=== PATIENT | female | born 1960 ===

== ENCOUNTER 2020-08-27 16:19 | Outpatient (REF) | payer OTHER, SELFPAY ==
--- NOTE | ~2020-08-27 | MM_ITS ---
EXAMINATION: MM SCREENING DIGITAL BREAST TOMOSYNTHESIS, BILATERAL CLINICAL INFORMATION: Screening. Asymptomatic. The lifetime risk of breast cancer based on the Tyrer-Cuzick Model is 17.2%. COMPARISON: Mammography: September 06, 2018 and studies dating back to January 05, 2011 TECHNIQUE: Digital breast tomosynthesis is performed in both the craniocaudal and mediolateral oblique views along with computer-aided detection (CAD). Synthesized 2D images are generated from the tomosynthesis. FINDINGS: The breasts are almost entirely fatty (ACR BI-RADS breast composition Category a). There are no significant masses, abnormal calcifications, or other abnormalities. MM/MM tomosynthesis screening BI IMPRESSION: There are no significant changes from prior study. ASSESSMENT: BI-RADS 1: Negative RECOMMENDATION: Routine annual mammography screening. This patient's information was entered into a reminder system with a target due date for their next mammogram.
== END 2020-08-27 16:20 | disposition home or self-care (01) ==
LOC: HO.MAMMO 16:19
PROVIDERS: Visit Provider Family Medicine
DX: Z12.31 Encounter for screening mammogram for malignant neoplasm of breast (principal)
CPT/HCPCS: 77063; 77067

== ENCOUNTER 2021-12-07 14:00 | Outpatient (REF) | payer OTHER, SELFPAY ==
--- NOTE | ~2021-12-07 | XR_ITS ---
EXAMINATION: XR HAND, RIGHT CLINICAL INFORMATION: Pain COMPARISON: None TECHNIQUE: PA, lateral, and oblique views of the right hand. FINDINGS: The bones and soft tissues are normal. No fracture. Alignment is anatomic. Joint spaces are maintained. No erosions or soft tissue calcifications. XR/XR hand RT min 3V IMPRESSION: Normal right hand.
== END 2021-12-07 14:01 | disposition home or self-care (01) ==
LOC: HO.XRAY 14:00
PROVIDERS: PCP Family Medicine; Visit Provider Nurse Practitioner Primary Care
DX: M79.644 Pain in right finger(s) (principal)
CPT/HCPCS: 73130

== ENCOUNTER 2023-05-19 11:09 | Outpatient (REF) | payer MEDICAID, SELFPAY ==
[2023-05-22 10:48] LABS: TS Negative Control Passed; TS Panel A 1; TS Panel B 0; TS Positive Control Passed; TSpotTB Negative (Negative)
== END 2023-05-19 11:10 | disposition home or self-care (01) ==
LOC: HO.HHCL 11:09
PROVIDERS: Visit Provider Family Medicine
DX: Z11.1 Encounter for screening for respiratory tuberculosis (principal)
CPT/HCPCS: 36415; 86481

== ENCOUNTER 2023-07-05 10:26 | Outpatient (REF) | payer OTHER, SELFPAY ==
[2023-07-05 12:01] LABS: Estimated Average Glucose 128 mg/dL; Hemoglobin A1c % 6.1 % (<6.0)
[2023-07-05 12:30] LABS: Alanine Aminotransferase 13 U/L (0-31); Albumin Level 3.9 g/dL (3.5-5.0); Alkaline Phosphatase 68 U/L (39-117); Anion Gap 10 (12-20); Aspartate Amino Transferase 17 U/L (5-31); Bilirubin Total 0.4 mg/dL (0.0-1.0); Blood Urea Nitrogen 13 mg/dL (9-16); Calcium 9.4 mg/dL (8.4-10.2); Carbon Dioxide 29 mmol/L (22-29); Chloride 105 mmol/L (96-108); Cholesterol 268 mg/dL (<200); Estimated Glomerular Filt Rate > 60; Glucose Random 108 mg/dL (60-115); HDL Cholesterol 50 mg/dL (>40); LDL Cholesterol Calculated 171 mg/dL (<100); Potassium 4.5 mmol/L (3.3-5.1); Sodium 139 mmol/L (135-145); Total Protein 7.9 g/dL (6.5-8.0); Triglycerides 235 mg/dL (<150)
[2023-07-05 12:49] LABS: Reflex LDLD? No
== END 2023-07-05 10:27 | disposition home or self-care (01) ==
LOC: HO.HHCL 10:26
PROVIDERS: Visit Provider Family Medicine
DX: E78.5 Hyperlipidemia, unspecified (principal); R73.02 Impaired glucose tolerance (oral)
CPT/HCPCS: 36415; 80053; 80061; 83036

== ENCOUNTER 2023-07-27 10:07 | Outpatient (REF) | payer MEDICAID, SELFPAY | END 2023-07-27 10:08 | disposition home or self-care (01) | LOC: HO.MAMMO 10:07 | PROVIDERS: PCP Family Medicine; Visit Provider Family Medicine | DX: Z12.31 Encounter for screening mammogram for malignant neoplasm of breast (principal) | CPT/HCPCS: 77063; 77067 ==

== ENCOUNTER → 2023-07-27 10:15 | Outpatient (BNV) | payer MEDICAID, SELFPAY | PROVIDERS: PCP Family Medicine; Visit Provider Radiology Diagnostic Radiology | DX: Z12.31 Encounter for screening mammogram for malignant neoplasm of breast (principal) | CPT/HCPCS: 77063; 77067 ==

== ENCOUNTER 2023-08-21 09:08 | Outpatient (AMB) | payer MEDICAID, SELFPAY ==
--- NOTE | 2023-08-21 09:10 | A.OFFVIS_ITS ---
Vital Signs 08/21/23 09:12 Height 5 ft 3 in Weight 172 lb 6.424 oz BMI 30.5 BP 120/66 Blood Pressure Location Lt brachial Position Sitting Pulse 60 Pulse Source Pulse Oximeter Pulse Oximetry (%) 98 Oxygen Delivery Method Room Air Intake Visit Reasons: Colonoscopy screening Intake Note: Graciela presents today for a colo scr, new pt appt. CC; Pt reports that they are very excited for this appt; pt reports that they are experiencing intermittent constipation and loose stools. Pt also reports that they have no previous hx of colo. Allergies Penicillins [PENICILLINS] Allergy (Intermediate, Verified 08/21/23 09:18) RASH penicillin V Allergy (Unknown, Verified 08/21/23 09:18) Rash HPI HPI Colonoscopy screening: Details: 63 year old? female is here today for pre colonoscopy screening.? Patient was sent to us by her PCP.? This is her first colonoscopy screening.? Patient denies any gastrointestinal symptoms in the past or at present, however patient does admit to occasional constipation and occasional loose stools depending on what she eats..? Denies any personal or family history of gastrointestinal disease, colon polyps, or CRC.? Patient never had anesthesia in the past.? Negative for history of sleep apnea.? Denies any history of cardiac, renal, pulmonary, or hepatic disease.?? No history of infectious? diseases like hepatitis A, B, C, HIV or tuberculosis.? Patient is not on any anticoagulation [facility] Medical History delivery delivered Family History Sister Breast cancer Social History (Updated 08/21/23 @ 09:17 by Yohannes Melgar CMA) Alcohol intake: never Patient Tobacco Use Status: Never used Tobacco Use of substances other than those prescribed or required for medical reasons: No Review of Systems Const Denies weight gain and Denies weight loss ENT Reports no additional complaints, Denies dysphagia and Denies odynophagia Card Reports no additional complaints Resp Reports no additional complaints GI Denies abdominal pain, Denies belching, Denies melena, Denies bloating, Reports constipation, Denies dysphagia, Denies excessive flatus, Denies dyspepsia, Carlos es heartburn, Denies diarrhea, Reports loose stools, Denies nausea, Denies odynophagia and Denies vomiting Reports no additional complaints Musc Reports no additional complaints Neuro Reports no additional complaints Psych Reports no additional complaints Endo Reports no additional complaints Physical Exam Vital Signs: Last Vital Signs Pulse 60 08/21/23 09:12 BP 120/66 08/21/23 09:12 Pulse Ox 98 08/21/23 09:12 Oxygen Delivery Method Room Air 08/21/23 09:12 BMI result Body Mass Index 30.5 Const General: healthy appearing and no acute distress Nutritional Appearance: obese Orientation/consciousness: patient oriented x3 Resp Effort & Inspection: normal respiratory effort, able to speak in complete sentences, no tracheal deviation and symmetric chest movement Auscultation: clear to auscultation bilaterally Cardio Rate: regular rate GI Inspection: Yes normal to inspection, No distended and Yes obesity Palpation (GI): Soft to palpation, not firm, nontender and No hepatosplenomegaly present Auscultation: normal bowel sounds General: Yes no CVA tenderness Back/Spine/Pelvis Back: no CVA tenderness Skin General skin exam: elasticity normal, turgor normal and dry skin Neuro General: patient oriented x3 Psych Appearance: grossly normal Mental Status: mental status grossly normal Assessment & Plan Assessment & Plan (1) Positive colorectal cancer screening using Cologuard test: Code(s): R19.5 - Other fecal abnormalities Plan Patient denies any GI, cardiac or respiratory symptoms.? However patient does admit to have occasional constipation or diarrhea depending on what she eats. Patient never had anesthesia in the past.? Denies any history of sleep apnea.? No history infectious diseases in the past or present.? Not on any anticoagulation therapy.? No family or personal history of colon cancer or polyps.? Patient denies melena, hematochezia, unintentional weight loss or ribbon like stools.? Discussed at length the pre-procedure,? prep, diet & medications as well as what to expect prior, during and after the procedure.?? Stressed the importance of good bowel prep.? Recommended the use of Vaseline or Calmoseptine OTC & baby wipes with bowel movements to promote comfort.? ?Patient verbalizes understanding and agrees to plan of care.? She was given the opportunity to ask questions and all questions answered.? We will see her after the procedure.? Medications: New bisacodyl (Dulcolax (bisacodyl)) take 4 tabs at noon the day before your colonoscopy 20 mg (4 x 5 mg) PO ONCE 4 tabs 0RF 1 day Z12.11 - Encounter for screening for malignant neoplasm of colon polyethylene glycol 3350 (Miralax) As directed by gastroenterology department at [facility] 238 grams PO ONCE 238 grams 0RF Z12.11 - Encounter for screening for malignant neoplasm of colon Coding Level of Care Code New Pt Level 3 (18017) Diagnoses Positive colorectal cancer screening using Cologuard test R19.5 Time Spent (min) 40 Comment 30 minutes spent with patient and additional 10 minutes spent reviewing her records
[2023-08-21 09:12] VITALS: BP 120/66; PULSE 60; O2SAT 98; BMI 30.5
== END 2023-08-21 10:07 | disposition home or self-care (01) ==
PROVIDERS: PCP Family Medicine; Visit Provider Nurse Practitioner Family
DX: R19.5 Other fecal abnormalities (principal)
CPT/HCPCS: 99203

== ENCOUNTER → 2023-08-21 09:08 | Outpatient (BNVA) | payer MEDICAID, SELFPAY | PROVIDERS: PCP Family Medicine; Visit Provider Nurse Practitioner Family | DX: R19.5 Other fecal abnormalities (principal) | CPT/HCPCS: 99212 ==

== ENCOUNTER 2023-10-04 13:46 | Outpatient (AMB) | payer MEDICAID, SELFPAY ==
--- NOTE | 2023-10-04 13:51 | A.OFFVIS_ITS ---
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 She does not have any history of coronary artery disease or myocardial infarction or cardiomyopathy or in fact any other cardiac issues. She states she gets chest pain on both sides of her sternum off and on. No clear exertional patterns and can essentially happen any time. No other complaints like shortness of breath or palpitations or anything else of cardiac nature. She seems to have a normal blood pressure. She does have high lipids but does not seem to be on any statins. [facility] Medical History (Updated 10/04/23 @ 14:19 by Colton Parada MD) Mixed hyperlipidemia delivery delivered Family History Sister Breast cancer Social History Alcohol intake: never Patient Tobacco Use Status: Never used Tobacco Review of Systems Const Denies chills, Denies daytime sleepiness, Denies fatigue, Denies fever(s), Denies poor appetite, Denies snoring, Denies stops breathing during sleep, Denies weakness, Denies weight gain and Denies weight loss Eyes Denies loss of vision ENT Denies dizziness and Reports hearing loss Card Denies chest pain, Denies irregular heart rhythm, Denies claudication, Denies leg edema, Denies lightheadedness, Denies palpitations, Denies dyspnea on exertion and Denies orthopnea Resp Denies cough, Denies excessive phlegm production, Denies dyspnea on exertion, Denies snoring and Denies wheezing GI Denies abdominal pain, Denies hematochezia, Denies change in bowel habits, Denies nausea and Denies vomiting Denies urinary frequency and Denies dysuria Musc Denies arthralgias, Denies muscle weakness, Denies numbness and Denies other Skin/Breast Denies nail changes and Denies rash Neuro Denies Abnormal speech present, Denies dizziness, Denies loss of vision, Denies memory loss, Denies numbness and Denies weakness Psych Denies depression and Denies memory loss Endo Denies fatigue and Denies palpitations Baldomero/Lymph Denies easy bruising Aller/Immun Denies wheezing Physical Exam Vital Signs: Last Vital Signs Pulse 60 10/04/23 13:52 BP 112/66 10/04/23 13:52 BMI result Body Mass Index 30.6 Const General: comfortable and no acute distress Orientation/consciousness: patient oriented x3 HEENT Other: Unremarkable Head: Yes normal to inspection Neck Neck: Yes normal visual inspection Chest Chest palpation & inspection: normal inspection of the chest Resp Auscultation: clear to auscultation bilaterally Cardio Palpation: normal PMI Heart sounds: S1 normal heart sound present, S2 normal heart sound present, no gallops, no murmurs and no rubs GI Palpation (GI): Soft to palpation Back/Spine/Pelvis Other: unremarkable Skin General skin exam: no rashes or lesions noted Neuro General: patient oriented x3 Speech: No Abnormal speech present Extrem General: Yes normal to inspection Psych Mental Status: mental status grossly normal Office Procedures EKG Details: EKG with sinus rhythm at 60/Min; nonspecific ST-T changes; [place]. [address]-[id number], Complete Assessment & Plan Assessment & Plan (1) Precordial chest pain: Code(s): R07.2 - Precordial pain Category: Medical (2) Mixed hyperlipidemia: Code(s): E78.2 - Mixed hyperlipidemia Category: Medical Plan Atypical chest pain, untreated hyperlipidemia, nonspecific changes in the EKG. Plan for an echocardiogram and exercise stress test. Follow-up after the above. Orders: Orders CA echo transthoracic complete Today R07.2 - Precordial pain CA echo stress exercise Today R07.2 - Precordial pain Coding Level of Care Code New Pt Level 3 (11290) Diagnoses Precordial chest pain R07.2 Mixed hyperlipidemia E78.2 CPT Codes EKG - CPT: 44490-[id number], Complete ([id number])
[2023-10-04 13:52] VITALS: BP 112/66; PULSE 60; BMI 30.6
== END 2023-10-04 14:19 | disposition home or self-care (01) ==
PROVIDERS: PCP Family Medicine; Visit Provider Internal Medicine
DX: R07.2 Precordial pain (principal); E78.2 Mixed hyperlipidemia
CPT/HCPCS: 93010; 99203

== ENCOUNTER → 2023-10-04 13:46 | Outpatient (BNVA) | payer MEDICAID, SELFPAY | PROVIDERS: PCP Family Medicine; Visit Provider Internal Medicine | DX: R07.2 Precordial pain (principal); E78.2 Mixed hyperlipidemia | CPT/HCPCS: 93005; 99202 ==

== ENCOUNTER → 2023-10-19 13:06 | Outpatient (REF) | payer MEDICAID, SELFPAY ==
--- NOTE | 2023-10-19 13:09 | CA_ITS ---
Transthoracic Echocardiogram Patient (Last, First, Middle): Graciela Sheldon, Gender: Female Date of : 1960 Age: 63 Procedure Date: 10/19/2023 Procedure Type: Transthoracic Echocardiogram Location: OP Height: 160.02 cm Weight: 78.93 kg BSA: 1.82 m2 Heart Rate: bpm BP: 112 / 66 mmHg Apartment Maintenance Manager: MCKENNA Referring MD: Colton Parada MD Burr Machine Operator: Ramu Darling MD Symptoms: R07.2 - Precordial pain Study Quality: Adequate ECG Rhythm: Sinus Conclusions: - Normal study Findings Left Ventricle Normal left ventricular size, thickness, and systolic function. The visually estimated ejection fraction is between 65-70%. Spectral Doppler is indicative of a normal filling pattern. Peak GLS is -23.7%, within normal limits. Right Ventricle Normal right ventricular cavity size and systolic function. Atria Both atria are normal in size. There is no evidence of interatrial shunt. Aortic Valve Normal aortic valve structure and function. There is no aortic valve stenosis. There is no aortic valve regurgitation. Mitral Valve Normal mitral valve structure and function. There is trace mitral valve regurgitation. There is no mitral valve stenosis. Pulmonic Valve The pulmonic valve is likely normal. Tricuspid Valve Normal tricuspid valve structure. There is trace tricuspid valve regurgitation. The right ventricular systolic pressure is normal. The right ventricular systolic pressure is 26 mmHg. Normal right atrial pressure. There is no evidence of pulmonary hypertension. Great Vessels All visible segments of the aorta are normal in size. The pulmonary artery was not well visualized. Venous The inferior vena cava is normal in size and collapses greater than 50% with inspiration. Pericardium/Pleural There is no evidence of pericardial effusion. Prior Study Comparison No prior study available for comparison. Measurements 2D Linear Measurements IVSd: 0.91 0.6-0.9/0.6-1.0 cm LVIDd: 4.25 3.9-5.3/4.2-5.9 cm LVIDd Index: 2.34 2.4-3.2/2.2-3.1 cm/m2 LVIDs: 2.05 2.0-3.6 cm LVPWd: 0.78 0.7-1.1 cm LA Diam: 3.50 2.7-3.8/3.0-4.0 cm LAIDs Index: 1.92 1.5-2.3 cm/m2 LV Mass: 137.80 67-162/88-224 g LV Mass Index: 75.72 43-95/49-115 g/m2 LVOT Diam: 1.90 3.0+(-)1.3 cm 2D Systolic Function EF 4C: 71.60 >55% EF 2C: 67.40 >55% EF BiP: 68.90 >55% Mitral Valve MV Pk E: 0.69 MV PK A: 0.74 MV Decel Time: 292.00 E/A: 0.90 E'Lateral: 10.70 E'Medial: 6.64 E/E' Med: 10.50 E/E' Lat: 6.50 PHT: 86.00 MVA PHT: 2.56 Decel [place]: 2.38 Aortic Valve AoV Pk Chandu: 1.79 AoV Mn Chandu: 1.18 AoV VTI: 0.39 AoV Pk Grad: 13.00 Aov Mn Grad: 6.00 LIO Cont.VTI: 1.94 LVOT LVOT Pk Chandu: 1.17 LVOT Mn Chandu: 0.73 LVOT VTI: 0.27 LVOT Pk Grad: 5.00 LVOT Mn Grad: 3.00 LVOT Diam: 1.90 LVOT Area: 2.84 Diastolic Function MV Pk E: 0.69 MV Pk A: 0.74 E/A: 0.90 E'Medial: 6.64 E/E' Med: 10.50 E' Laterial: 10.70 E/E' Lat: 6.50 Right Ventricle TAPSE (mm): 21.10 TVS' Chandu: 10.90 Tricuspid Valve TR Pk Chandu: 2.39 TR Pk Grad: 23.00 RA Press: 3.00 RVSP: 26.00 Great Vessels Aorta Sinus of Valsalva: 2.52 2.0-3.[address] [place]: 1.54 1.7-3.4 cm Ao Asc: 2.70 2.1-3.4 cm Updated in Other Vendor System with Status of Final Ramu Darling MD electronically signed on 10/19/2023 3:45:26 PM with status of Final
== END ==
LOC: HO.CARD 13:06
PROVIDERS: PCP Family Medicine; Visit Provider Internal Medicine
DX: R07.2 Precordial pain (principal)
CPT/HCPCS: 93306; 93356

== ENCOUNTER → 2023-10-19 13:09 | Outpatient (BNV) | payer MEDICAID, SELFPAY | PROVIDERS: PCP Family Medicine; Visit Provider Internal Medicine Cardiovascular Disease | DX: R07.2 Precordial pain (principal) | CPT/HCPCS: 93306; 93356 ==

== ENCOUNTER → 2023-11-16 10:53 | Outpatient (REF) | payer MEDICAID, SELFPAY ==
--- NOTE | 2023-11-16 10:56 | CA_ITS ---
Acquisition Time: 2023-11-16 11:03:28 Total Exercise Time: 00:10:13 Test Indications: HYPERLIPIDEMIA, CP Medications: SEE H Protocol: ADENIKE Max HR: 148 BPM 93% of Pred: 159 BPM Max BP: 156/084 mmHG Max Work Load: 11.4 METS Exercise stress test with exercise 10 min 13 sec of Adenike protocol, achieving 93% MPHR, without anginal symptoms, with isolated PACs, with normotensive response to exercise, without EKG changes meeting criteria for ischemia. EKG lead became disconnected in patient transfer from treadmill to stretcher causing a delay in post exercise images by 30 seconds. Echo images obtained by tech at rest and post exercise. Definity contrast used. Test reviewed with Dr Darling. Referred By: Colton Parada Overread By: DIANNE CHACON
== END ==
LOC: HO.CARD 10:53
PROVIDERS: PCP Family Medicine; Visit Provider Internal Medicine
DX: R07.2 Precordial pain (principal)
CPT/HCPCS: 93350; Q9957

== ENCOUNTER → 2023-11-16 10:56 | Outpatient (BNV) | payer MEDICAID, SELFPAY | PROVIDERS: PCP Family Medicine; Visit Provider Nurse Practitioner Family | DX: R07.9 Chest pain, unspecified (principal); I49.3 Ventricular premature depolarization | CPT/HCPCS: 93016; 93018; 93350; 93352 ==

== ENCOUNTER 2024-08-01 10:23 | Outpatient (REF) | payer MEDICAID, SELFPAY ==
--- OUTSIDE RECORDS SUMMARY | 2024-08-01 11:29 | XMS_ITS | Clinical Summary ---
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 - Continue working on lifestyle modification Assessment & Plan (07/06/2023 8:44 AM EDT): - EKG: heart rate 55 bradycardia, LAD - will refer to professional athletes coach for stress test Carpal tunnel syndrome 11/17/2016 Assessment & Plan (07/06/2023 8:42 AM EDT): - continue conservative management Dyslipidemia 03/08/2016 Assessment & Plan (10/04/2023 10:40 AM EDT): - Last lipid profile on 07/05/2023 TC 268; TG 235; HDL 50; LDL 171 - continue working on lifestyle modifications Assessment & Plan (07/06/2023 8:44 AM EDT): - continue working on lifestyle modifications - will check lab Obesity 01/05/2016 Pre-diabetes 12/19/2011 Assessment & Plan (10/04/2023 3:54 PM EDT): >>ASSESSMENT AND PLAN FOR IMPAIRED GLUCOSE TOLERANCE WRITTEN ON 07/06/2023 8:43 AM BY AMAURY LUX MD - will check lab - continue working on lifestyle modifications Assessment & Plan (10/04/2023 3:55 PM EDT): - A1c 6.3 % on 10/04/2023 - continue working on lifestyle modifications Encounters Date Type Department Care Team Description 05/31/2024 Population Health Risk Score Community [facility] ([facility]) Department [address] [place] [address] [phone] Provider, Population Health Generic from Last 3 Months Immunizations Immunization Administration Dates Next Due Influenza injectable quadriv alent IIV4 with preservative 01/23/2018,04/25/2017,01/05/2016 Influenza, IIV3, injectable 01/09/2014 MMR 10/14/2020,09/16/2020 Tdap 06/08/2021,11/03/2010 Zoster, Recombinant 11/18/2020,09/17/2020 Social History Tobacco Use Types Packs/Day Years Used Date Smoking Tobacco: Never Smokeless Tobacco: Never Tobacco Cessation:Counseling Given: Not Answered Depression Answer Date Recorded Patient Health Questionnaire-9 Score 0 07/05/2023 Patient Health Questionnaire-9 Score 0 07/05/2023 Last PHQ-9: Questionnaire Data Not on file 0 07/05/2023 Housing Stability Answer Date Recorded What is your housing situation today? I have tabitha zapien 06/23/[address] you li ve. Do you have problems with any of the following? None of the above 06/23/2023 Food Insecurity Answer Date Recorded Within the past 12 months, y ou worried that your food would run out before you got money to buy more: Never True 06/23/2023 Within the past 12 months,th e food you bought just didn't last and you didn't have enough money to get more: Never True 07/2023 Transportation Answer Date Recorded In the past 12 months, has l ack of transportation kept you from medical appts, meetings, work or from getting things needed for daily living? No 06/23/2023 Utilities Answer Date Recorded In the past 12 months, has t he electric, gas, oil or water company threatened to shut off services in your home? No 06/23/2023 Depression Answer Date Recorded Patient Health Questionnaire-2 Score 0 07/05/2023 Comments Unknown Sex and Gender Information Value Date Recorded Sex Assigned at Female 01/17/2022 10:21 AM EDT Legal Sex Female 10:21 AM EDT Gender Identity Female 01/17/2022 10:21 AM EDT Sexual Orientation Choose not to disclose 2021 10:21 AM EDT Last Filed Vital Signs Vital Sign Reading Time Taken Comments Blood Pressure 110/68 10/04/2023 10:11 AM EDT Pulse 66 10/04/2023 10:11 AM EDT Temperature 35.8 ??C (96.5 ??F) 10/04/2023 1 0:11 AM EDT Respiratory Rate 18 10/04/2023 10:1 1 AM EDT Oxygen Saturation 98% 10/04/2023 10: 11 AM EDT Inhaled Oxygen Concentration - - Weight 78.4 kg (172 lb 12.8 oz) 024 10:11 AM EDT Height 159.9 cm (5' 2.95 ) 07/05/2023 9:32 AM ED T Body Mass Index 30.66 07/05/2023 9:32 AM EDT Plan of Treatment Upcoming Encounters Date Type Department Care Team (Late st Contact Info) Description 08/08/2024 2:30 PM EDT Office Visit [facility] [address] [place] [address] Ernie, Shreya, OD [address] [place], [place] [phone] Health Maintenance Due Date Last Done Comments CT Colonography 1962 Colonoscopy 1960 Colorectal Cancer Screening 1960 FIT DNA/Cologuard 1962 FIT 1962 FOBT 1960 Sigmoidoscopy 1962 Alcohol/Substance Use Screening 1974 Pneumococcal Vaccine: 50+ Years (1 of 1 - PCV) 2012 Pap Smear 09/30/2023 09/29/2020 COVID-19 Vaccine ( - 2023- season) 2023 09/29/2020, 09/01/2020 Influenza Vaccine (#1) 2023 8, 04/25/2017, 01/05/2016, Additional history exists Dental Oral Exam 01/28/2024 07/27/2023 Dental Prophylaxis 01/29/2024 07/28/2023 SDOH Screening 06/22/2024 06/23/2023 Depression Screening 07/04/2024 07/05/2023, 07/05/19 24 Dental X-Ray: Bitewings 07/27/2024 07/27/2023 Diabetes: Hemoglobin A1C 10/03/2024 024, 07/05/2023, 06/08/2021, Additional history exists Tobacco Screening 10/03/2024 10/04/2023 Mammogram 07/26/2025 07/27/2023, 08/18, 09/07/2018, Additional history exists Cervical Cancer Screening 09/29/2025 HPV/Cotest 09/29/2025 09/29/2020 Dental X-Ray: Full Mouth 07/27/2026 07/27/2023 Lipid Panel 07/04/2028 07/05/2023, 05/19, 08/20/2020 DTaP/Tdap/Td Vaccines (3 - Td or Tdap) 06/09/2031 06/08/2021, 11/03/2010 RSV Patients and Patients Aged 60 years or older (1 - 1-dose 75+ series) 2037 Zoster Vaccines Completed 11/18/2020, 09/17/2020 HIB Vaccines Aged Out No longer eligi ble based on patient's age to complete this topic HIV Screening Discontinued HPV Vaccines Aged Out No longer eligi ble based on patient's age to complete this topic Hepatitis A Vaccines Aged Out No long er eligible based on patient's age to complete this topic Hepatitis B Vaccines Aged Out No long er eligible based on patient's age to complete this topic Hepatitis C Screening Discontinued IPV Vaccines Aged Out No longer eligi ble based on patient's age to complete this topic Meningococcal B Vaccine Aged Out No l onger eligible based on patient's age to complete this topic Meningococcal Vaccine Aged Out No alycia haven eligible based on patient's age to complete this topic RSV under 20 months Aged Out No longe r eligible based on patient's age to complete this topic Rotavirus Vaccines Aged Out No longer eligible based on patient's age to complete this topic Procedures Procedure Name Priority Date/Time Associated Diagnosis Comments POCT GLYCOSYLATED HEMOGLOBIN (HGB A1C) Routine 10/04/2023 10:48 AM EDT Pre-diabetes PROPHYLAXIS - ADULT Routine 07/28/2023 2 :00 PM EDT Periodontal disease Dental calculus INTRAORAL - COMPLETE SERIES OF RADIOGRAPHIC IMAGES Routine 07/27/2023 1:30 PM EDT Encounter for dental examination Dental caries Periodontal disease Dental calculus Dental abscess COMPREHENSIVE ORAL EVALUATION - NEW OR ESTABLISHED PATIENT Routine 07/27/2023 1:30 PM EDT Encounter for dental examination Dental caries Periodontal disease Dental calculus Dental abscess BI MAMMOGRAM SCREENING TOMOSYNTHESIS BILATERAL Routine 07/27/2023 10:38 AM EDT Breast cancer screening by mammogram LIPID PANEL WITH REFLEX TO DIRECT LDL Routine 07/05/2023 10:27 AM EDT Dyslipidemia HPV MRNA E6/E7 Routine 09/29/2020 12:00 AM EDT THINPREP PAP Routine 09/29/2020 12:00 AM EDT from Last 3 Months or Most Recently Relevant to Health Maintenance Results * (ABNORMAL) POCT glycosylated hemoglobin (Hgb A1c) (10/04/2023 10:48 AM EDT) Hemoglobin A1C 6.3(A) 4.0 - 6.0 % QC Media Lot # [id number] Lot# Expiration Date [id number] Blood Capillary blood specimen / Unknown 10/04/2023 10:48 AM EDT Amaury Lux MD POINT OF CARE TEST ENTER/EDIT OR DERABLES Final Result * BI Mammogram Screening Tomosynthesis Bilateral (07/27/2023 10:38 AM EDT) Anatomical Region Laterality Modality Breast Bilateral Mammography 07/27/2023 10:3 8 AM EDT Narrative 08/25/2023 8:37 AM EDT ? [facility] [place] ? [address] ?[place] [address] ? Mammography Report ? Signed ? Patient: Graciela Sheldon ? MR#: [id number] ? : 1960 ?Acct:[id number] ? Age/Sex: 63 / F ?ADM Date: 07/27/23 ? Loc: HO.MAMMO ? Attending Dr: Amaury Lux MD ? Ordering Physician: Amaury Lux MD ?Results: 1Negative ? Date of Service: 07/27/23 ?Follow Up: 1 Year From Orig ?? inal Mammogram ? Procedure(s): MM tomosynthesis screening BI ?? Accession Number(s): [id number] ? cc: Amaury Lux MD ? EXAMINATION: ?? MM SCREENING DIGITAL BREAST TOMOSYNTHESIS, BILATERAL ? CLINICAL INFORMATION: ? Screening. Asymptomatic. ? COMPARISON: ?? Mammography: This study is compared with prior exams dating back to ?? 2017. ? TECHNIQUE: ?? Digital breast tomosynthesis is performed in both the craniocaudal and ?? mediolateral oblique views along with computer-aided detection (CAD). ?? Synthesized 2D images are generated from the tomosynthesis. ? FINDINGS: ?? There are scattered areas of fibroglandular density (ACR BI-RADS breast ?? composition Category b). ? There are no significant masses, abnormal calcifications, or other ?? abnormalities. ? MM/MM tomosynthesis screening BI ?? IMPRESSION: ?? No mammographic evidence of malignancy. ? ASSESSMENT: ? BI-RADS BI-RADS 1 - Negative ? RECOMMENDATION: ?? Routine annual mammography screening. ? 1 year F/U ? This examination should not preclude the clinical evaluation of a ?? suspicious palpable abnormality. ? This patient's information was entered into a reminder system with a ?? target due date for their next mammogram. ? Dictated By: ?Alis Lockhart MD ? Signed By: ?<Electronically signed by Alis Lockhart MD in OV> ? 08/25/23 0833 ? DD/ 1038 ? TD/TT: ? [employer] Driver: ? Procedure Note Crescencio Fitch - 08/25/2023 [facility] [address] [place] [address] Dr. Echols, REBECCA [address] Mammography Report Signed Patient: Graciela Sheldon MR#: [id number] : 1960Acct:[id number] Age/Sex: 63 / FADM Date: 07/27/23 Loc: [facility] Attending Dr: Amaury Lux MD Ordering Physician: Amaury Luxesults: 1Negative Date of Service: 07/27/23Follow Up: 1 Year From Orig inal Mammogram Procedure(s): MM tomosynthesis screening BI Accession Number(s): [id number] cc: Amaury Lux MD EXAMINATION: MM SCREENING DIGITAL BREAST TOMOSYNTHESIS, BILATERAL CLINICAL INFORMATION: Screening. Asymptomatic. COMPARISON: Mammography: This study is compared with prior exams dating back to 2018. TECHNIQUE: Digital breast tomosynthesis is performed in both the craniocaudal and mediolateral oblique views along with computer-aided detection (CAD). Synthesized 2D images are generated from the tomosynthesis. FINDINGS: There are scattered areas of fibroglandular density (ACR BI-RADS breast composition Category b). There are no significant masses, abnormal calcifications, or other abnormalities. MM/MM tomosynthesis screening BI IMPRESSION: No mammographic evidence of malignancy. ASSESSMENT: BI-RADS BI-RADS 1 - Negative RECOMMENDATION: Routine annual mammography screening. 1 year F/U This examination should not preclude the clinical evaluation of a suspicious palpable abnormality. This patient's information was entered into a reminder system with a target due date for their next mammogram. Dictated By: Alis Lockhart MD Signed By: <Electronically signed by Alis Lockhart MD in OV> 08/25/23 0833 DD/ 1038 TD/TT: [employer] Driver: Amaury Lux MD IM BI PROCEDURES Edited Result - Final * (ABNORMAL) Lipid Panel with Reflex to Direct LDL (07/05/2023 10:27 AM EDT) Triglycerides 235(H) <150 mg/dL [facility] Comment:Desirable Triglyceri de: less than 150 mg/dLBorderline High Triglyceride 150-199 mg/dLHigh Triglyceride: 200-499 mg/dLVery High Triglyceride: greater than or equal to 5OO mg/dL Cholesterol 268(H) <200 mg/dL [facility] Comment:Desirable Cholestero l: less than 200 mg/dLBorderline High Cholesterol: 200-239 mg/dLHigh Cholesterol: greater than 239 mg/dL LDL Cholesterol Calculated 171(H) <100 mg/dL [facility] Comment:Desirable LDL: less than 100 mg/dLNear Optimal/Above Optimal LDL: 110- 129 mg/dLBorderline High LDL: 130-159 mg/dLHigh LDL: 160-189 mg/dLVery High LDL: greater than or equal to 190 mg/dL HDL Cholesterol 50 >40 mg/dL [facility] Comment:Desirable HDL: great er than 40 mg/dL Note: This HDL assay may give artificially low results in patients with liver disease. Blood 07/05/2023 10:2 7 AM EDT 07/05/2023 11:20 AM EDT us Amaury Lux MD LAB BLOOD ORDERABLES Final Resul t Performing Organization Address [facility]/ZIP Co de Phone Number [facility] [address] [place] [phone] * THINPREP PAP (09/29/2020 12:00 AM EDT) Clinical Information: None given [facility] COMMENT SEE COMMENT [facility] Comment: EXPLANATORY NOTE: ? The Pap is a screening test for cervical cancer. It is ?? not a diagnostic test and is subject to false negative ?? and false positive results. It is most reliable when a ?? satisfactory sample, regularly obtained, is submitted ?? with relevant clinical findings and history, and when ?? the Pap result is evaluated along with historic and ?? current clinical information. ?? Computer Information Systems Professor: SEE COMMENT [facility] Comment: SXA, CT(ASCP) CT screening location: [address] ??[address] Interpretation/Res ult: SEE COMMENT [facility] Comment: Negative for intraepithelial lesion or malignancy. Atrophic pattern; predominantly parabasal cells LMP: NONE GIVEN [facility] Prev. BX: NONE GIVEN [facility] Prev. PAP: NONE GIVEN [facility] SOURCE: None given [facility] Statement Of Adequacy: SATISFACTORY FOR EVALUATION [facility] 09/29/2020 us Amaury Lux MD LAB PATHOLOGY ORDERABLES Final R esult [facility] [address] * HPV mRNA E6/E7 (09/29/2020 12:00 AM EDT) HPV nRNA E6/E7 Not Detected Not Detected [facility] Comment: Methodology: Medical Officer-Mediated Amplification This assay detects E6/E7 viral messenger RNA (mRNA) from 14 high-risk HPV types (16,18,31,33,35,39,45,51,52,56,58,59,66,68). ? The analytical performance characteristics of this assay have been determined by [employer]. The modifications have not been cleared or approved by the FDA. This assay has been validated pursuant to the CLIA regulations and is used for clinical purposes. ?? For additional information, please refer to http://education.drop.io/faq/JRZ674m1 (This link if provided for information/ educational purposes only.) 09/29/2020 us Amaury Lux MD LAB BLOOD ORDERABLES Final Resul t Performing Organization Address City/[facility] Co de Phone Number [facility] [address] from Last 3 Months or Most Recently Relevant to Health Maintenance Insurance HSN FULL [facility] STANDARD DENTAL-[facility] MEDICAID STAND ADULT Care Teams Rail Maintenance Worker Relationship Specialty Start Date End Date Amaury Lux MD [address] [place] [address] PCP - General Family Medicine 01/05/16
== END 2024-08-01 10:24 | disposition home or self-care (01) ==
LOC: HO.MAMMO 10:23
PROVIDERS: PCP Family Medicine; Visit Provider Family Medicine
DX: Z12.31 Encounter for screening mammogram for malignant neoplasm of breast (principal)
CPT/HCPCS: 77063; 77067

== ENCOUNTER → 2024-08-01 10:30 | Outpatient (BNV) | payer MEDICAID, SELFPAY | PROVIDERS: PCP Family Medicine; Visit Provider Internal Medicine | DX: Z12.31 Encounter for screening mammogram for malignant neoplasm of breast (principal) | CPT/HCPCS: 77063; 77067 ==